=== PATIENT | female | born 2000 | race Caucasian/White ===

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

== ENCOUNTER 2021-03-16 23:14 | Emergency (ER) | payer MEDICAID ==
[2021-03-16] MEDS ORDERED: PROTONIX 40 MG IV IV ONE (23:32)
[2021-03-16] MEDS ORDERED: GI COCKTAIL 45 ML (Maalox/Lidocaine) PO ONE (23:35)
--- NOTE | 2021-03-16 23:40 | ERPHSYRPT ---
- History of Present Illness Time Seen by Provider: 03/16/21 23:20 Source: patient Exam Limitations: no limitations Physician History: Patient is a 20-year-old female presents to our ED with complaints of postprandial pain. Patient states that she had a meal today that caused her to experience some abdominal pain radiating up to her throat. Patient has been experiencing the symptoms for several months. She has been completely worked up including gallbladder and ultrasounds. Patient states that her work-ups were negative. Patient has a foul taste in her mouth. It appears patient is experiencing GERD. No associated nausea or vomiting. No diarrhea. No rash. No diaphoresis. No fever. No trauma. Symptoms are mild to moderate in intensity. Symptoms typically occur after a meal. Patient voices no other complaints or concerns at this time. Timing/Duration: today, other (Patient presents to our ED because the symptoms were somewhat worse today.) Severity: moderate Modifying Factors: Improves With: nothing Associated Symptoms: heartburn Allergies/Adverse Reactions: cashew nut Allergy (Intermediate, Verified 03/16/21 23:14) Hives Hx Tetanus, Diphtheria Vaccination/Date Given: No Hx Influenza Vaccination/Date Given: Yes Hx Pneumococcal Vaccination/Date Given: No Travel Risk - Vaccine Status Have you recieved a Covid-19 vaccination: No - Review of Systems Constitutional: No Symptoms, No Fever, No Chills Eyes: No Symptoms Ears, Nose, & Throat: No Symptoms Respiratory: No Symptoms, No Cough, No Dyspnea Cardiac: No Symptoms, No Chest Pain, No Edema, No Syncope Abdominal/Gastrointestinal: No Symptoms, No Abdominal Pain, No Nausea, No Vomiting, No Diarrhea Genitourinary Symptoms: No Symptoms, No Dysuria Musculoskeletal: No Symptoms, No Back Pain, No Neck Pain Skin: No Symptoms, No Rash Neurological: No Symptoms, No Dizziness, No Focal Weakness, No Sensory Changes Psychological: No Symptoms Endocrine: No Symptoms Hematologic/Lymphatic: No Symptoms Immunological/Allergic: No Symptoms All Other Systems: Reviewed and Negative - Past Medical History Pertinent Past Medical History: Yes Neurological History: No Pertinent History ENT History: No Pertinent History Cardiac History: No Pertinent History Respiratory History: No Pertinent History Endocrine Medical History: Hypothyroidism Musculoskeletal History: No Pertinent History GI Medical History: GERD History: No Pertinent History Psycho-Social History: Depression Female Reproductive Disorders: No Pertinent History - Past Surgical History Past Surgical History: No Neuro Surgical History: No Pertinent History Cardiac: No Pertinent History Respiratory: No Pertinent History Gastrointestinal: No Pertinent History Genitourinary: No Pertinent History Musculoskeletal: No Pertinent History Female Surgical History: No Pertinent History - Social History Smoking Status: Never smoker How long have you smoked: 2 yrs Exposure to second hand smoke: Yes Drug Use: none Patient Lives Alone: No - Nursing Vital Signs Nursing Vital Signs: Initial Vital Signs Temperature 97.4 F 03/16/21 23:15 Pulse Rate 68 03/16/21 23:15 Respiratory Rate 18 03/16/21 23:15 Blood Pressure 119/79 03/16/21 23:15 O2 Sat by Pulse Oximetry 100 03/16/21 23:15 Pain Scale Pain Intensity 5 - Physical Exam General Appearance: no apparent distress, alert Eye Exam: PERRL/EOMI, eyes nml inspection Ears, Nose, Throat Exam: normal ENT inspection, TMs normal, pharynx normal, moist mucous membranes Neck Exam: normal inspection, non-tender, supple, full range of motion Respiratory Exam: normal breath sounds, lungs clear, airway intact, No re spiratory distress Cardiovascular Exam: regular rate/rhythm, normal heart sounds, normal peripheral pulses Gastrointestinal/Abdomen Exam: soft, normal bowel sounds, other (Patient has no abdominal pain to palpation.), No tenderness, No mass Back Exam: normal inspection, normal range of motion, No CVA tenderness, No vertebral tenderness Extremity Exam: normal inspection, normal range of motion, pelvis stable Neurologic Exam: alert, oriented x 3, cooperative, normal mood/affect, nml cerebellar function, nml station & gait, sensation nml, No motor deficits Skin Exam: normal color, warm, dry, No rash Lymphatic Exam: No adenopathy SpO2 Interpretation: normal O2 Delivery: Room Air - Course Nursing assessment & vital signs reviewed: Yes EKG Interpreted by Me: RATE (64), Sinus Rhythm, NORMAL AXIS, NORMAL INTERVALS Ordered Tests: Active Orders 24 hr Category Date Time Status EKG-ER Only STAT Care 03/16/21 23:32 Active IV Insertion STAT Care 03/16/21 23:32 Active CBC W DIFF Stat Lab 03/16/21 23:32 Completed CMP Stat Lab 03/16/21 23:32 Completed D-DIMER QUANTITATIVE Stat Lab 03/16/21 23:32 Completed LIPASE Stat Lab 03/16/21 23:32 Completed TROPONIN Q3H Lab 03/16/21 23:32 Completed TROPONIN Q3H Lab 03/17/21 02:45 Ordered TROPONIN Q3H Lab 03/17/21 05:45 Ordered TROPONIN Q3H Lab 03/17/21 08:45 Ordered TROPONIN Q3H Lab 03/17/21 11:45 Ordered Medication Summary Discontinued Medications Generic Name Dose Route Start Last Admin Trade Name Nanci PRN Reason Stop Dose Admin Al Hydrox/Mg Hydrox/Simethicone Confirm 03/17/21 00:09 Mag Hydrox/Al Hydrox/Simeth 30 Ml Udcup Administered 03/17/21 00:10 Dose 30 ml .ROUTE .STK-MED ONE Lidocaine HCl Confirm 03/17/21 00:09 Lidocaine Hcl Viscous 1 Ml Administered 03/17/21 00:10 Dose 15 ml .ROUTE .STK-MED ONE Magnesium Hydroxide 45 ml 03/16/21 23:35 03/17/21 00:11 Mag Hydrx/Alum Hyd/Simeth/Lido 45 Ml Bottle PO 03/16/21 23:36 45 ml STAT ONE Administration Pantoprazole Sodium 40 mg 03/16/21 23:32 03/17/21 00:10 Pantoprazole 40 Mg Vial IV 03/16/21 23:33 40 mg STAT ONE Administration Pantoprazole Sodium Confirm 03/17/21 00:09 Pantoprazole 40 Mg Vial Administered 03/17/21 00:10 Dose 40 mg IV .STK-MED ONE Lab/Rad Data: Laboratory Result Diagrams 03/16/21 23:32 03/16/21 23:32 Laboratory Results 03/16/21 03/16/21 03/16/21 Range/Units 23:32 23:32 23:32 WBC 10.8 H (4.0-10.5) K/mm3 RBC 4.57 (4.1-5.4) M/mm3 Hgb 13.2 (12.0-16.0) gm/dl Hct 41.5 (35-47) % MCV 90.8 (78-100) fl MCH 28.9 (26-32) pg MCHC 31.8 L (32-36) g/dl RDW 13.9 (11.5-14.0) % Plt Count 286 (150-450) K/mm3 MPV 11.8 H (7.5-11.0) fl Gran % 59.4 (36.0-66.0) % Eos # (Auto) 0.21 (0-0.5) Absolute Lymphs (auto) 3.03 (1.0-4.6) Absolute Monos (auto) 1.14 (0.0-1.3) Lymphocytes % 28.0 (24.0-44.0) % Monocytes % 10.5 (0.0-12.0) % Eosinophils % 1.9 (0.00-5.0) % Basophils % 0.2 (0.0-0.4) % Absolute Granulocytes 6.43 (1.4-6.9) Basophils # 0.02 (0-0.4) D-Dimer 225 (215-500) ng/mL Sodium 141 (137-145) mmol/L Potassium 4.0 (3.5-5.1) mmol/L Chloride 108 H (98-107) mmol/L Carbon Dioxide 25 (22-30) mmol/L Anion Gap 12.5 (5-15) MEQ/L BUN 7 (7-17) mg/dL Creatinine 0.65 (0.52-1.04) mg/dL Estimated GFR > 60.0 ML/MIN Glucose 83 (74-106) mg/dL Calcium 9.2 (8.4-10.2) mg/dL Total Bilirubin 0.50 (0.2-1.3) mg/dL AST 22 (14-36) U/L ALT 19 (0-35) U/L Alkaline Phosphatase 40 (38-126) U/L Troponin I (0.000-0.034) ng/mL Serum Total Protein 7.2 (6.3-8.2) g/dL Albumin 4.4 (3.5-5.0) g/dL Lipase 78 (23-300) U/L 03/16/21 Range/Units 23:32 WBC (4.0-10.5) K/mm3 RBC (4.1-5.4) M/mm3 Hgb (12.0-16.0) gm/dl Hct (35-47) % MCV (78-100) fl MCH (26-32) pg MCHC (32-36) g/dl RDW (11.5-14.0) % Plt Count (150-450) K/mm3 MPV (7.5-11.0) fl Gran % (36.0-66.0) % Eos # (Auto) (0-0.5) Absolute Lymphs (auto) (1.0-4.6) Absolute Monos (auto) (0.0-1.3) Lymphocytes % (24.0-44.0) % Monocytes % (0.0-12.0) % Eosinophils % (0.00-5.0) % Basophils % (0.0-0.4) % Absolute Granulocytes (1.4-6.9) Basophils # (0-0.4) D-Dimer (215-500) ng/mL Sodium (137-145) mmol/L Potassium (3.5-5.1) mmol/L Chloride (98-107) mmol/L Carbon Dioxide (22-30) mmol/L Anion Gap (5-15) MEQ/L BUN (7-17) mg/dL Creatinine (0.52-1.04) mg/dL Estimated GFR ML/MIN Glucose (74-106) mg/dL Calcium (8.4-10.2) mg/dL Total Bilirubin (0.2-1.3) mg/dL AST (14-36) U/L ALT (0-35) U/L Alkaline Phosphatase (38-126) U/L Troponin I < 0.012 (0.000-0.034) ng/mL Serum Total Protein (6.3-8.2) g/dL Albumin (3.5-5.0) g/dL Lipase (23-300) U/L - Progress Progress: improved Progress Note: Patient reassessed. She is well. Symptoms resolved. Work-up essentially nonremarkable. Troponin negative. D-dimer negative. Patient received GI cocktail and Protonix which improved her symptomology. No indication for further work-up at this time. Will discharge home. Patient agrees to follow-up with primary care doctor within 48 hours for evaluation. She voices no other complaints or concerns at this time. Portions of this note were created with voice recognition technology. There may be grammatical, spelling, punctuation or sound alike errors 03/17/21 01:20 Counseled pt/family regarding: lab results, diagnosis, need for follow-up - Departure Departure Disposition: Home Clinical Impression: Acid reflux Condition: Stable Critical Care Time: No Referrals: TEMO GUERRERO [Primary Care Provider] - Follow up/PCP as directed Additional Instructions: Discharge/Care Plan SHASHI JORGENSEN was seen on 03/16/21 in the Emergency Room. The patient was counseled regarding Diagnosis,Lab results, Imaging studies, need for follow up and when to return to the Emergency Room. Prescriptions given: Discharge Note I have spoken with the patient and/or caregivers. I have explained the patient's condition, diagnosis and treatment plan based on the information available to me at this time. I have answered the patient's and/or caregiver's questions and addressed any concerns. The patient and/or caregivers have as good understanding of the patient's diagnosis, condition and treatment plan as can be expected at this point. The vital signs have been stable. The patient's condition is stable and appropriate for discharge from the emergency department. The patient will pursue further outpatient evaluation with the primary care physician or other designated or consulting physician as outlined in the discharge instructions. The patient and/or caregivers are agreeable to this plan of care and follow-up instructions have been explained in detail. The patient and/or caregivers have received these instruction. The patient/and or caregivers are aware that any significant change in condition or worsening of symptoms should prompt an immediate return to this or the closest emergency department or call 911. Prescriptions: Famotidine 20 mg [Pepcid 20 MG] 20 mg PO BID #28 tablet
[2021-03-16 23:58] LABS: Absolute Neutrophil Ct (ANC) 6.43 (1.4-6.9); BASOPHIL % 0.2 % (0.0-0.4); Basophil (Absolute #) 0.02 (0-0.4); Eosinophil % 1.9 % (0.00-5.0); Eosinophil (Absolute #) 0.21 (0-0.5); Hematocrit 41.5 % (35-47); Hemoglobin 13.2 gm/dl (12.0-16.0); Lymphocyte (Absolute #) 3.03 (1.0-4.6); Mean Cell Volume 90.8 fl (78-100); Mean Corpuscular Hemoglobin 28.9 pg (26-32); Mean Corpuscular Hgb Concent. 31.8 g/dl (32-36); Mean Platelet Volume 11.8 fl (7.5-11.0); Monocyte (Absolute #) 1.14 (0.0-1.3); Monocytes % 10.5 % (0.0-12.0); Neutrophil % 59.4 % (36.0-66.0); Platelet Count 286 K/mm3 (150-450); Red Blood Count 4.57 M/mm3 (4.1-5.4); Red Cell Distribution Width 13.9 % (11.5-14.0); White Blood Count 10.8 K/mm3 (4.0-10.5)
[2021-03-17] MEDS ORDERED: MAALOX ES 30 ML UNIT DOSE ONE (00:09)
[2021-03-17] MEDS ORDERED: XYLOCAINE HCl Viscous ONE (00:09)
[2021-03-17] MEDS ORDERED: PROTONIX 40 MG IV IV ONE (00:09)
[2021-03-17 00:10] LABS: ALBUMIN 4.4 g/dL (3.5-5.0); ALKALINE PHOSPHATASE 40 U/L (38-126); ANION GAP 12.5 MEQ/L (5-15); BLOOD UREA NITROGEN 7 mg/dL (7-17); CHLORIDE 108 mmol/L (98-107); Calcium 9.2 mg/dL (8.4-10.2); Carbon Dioxide 25 mmol/L (22-30); Creatinine 1 0.65 mg/dL (0.52-1.04); EST GLOMERULAR FILTRATION RATE > 60.0 ML/MIN; Glucose 83 mg/dL (74-106); LIPASE 78 U/L (23-300); SGOT/AST 22 U/L (14-36); SGPT/ALT 19 U/L (0-35); SODIUM 141 mmol/L (137-145); Total Protein 7.2 g/dL (6.3-8.2)
[2021-03-17 00:19] VITALS: O2SAT 99
[2021-03-17 01:09] VITALS: BP 116/45; PULSE 56
== END 2021-03-17 01:33 | disposition home or self-care (01) ==
LOC: ED 23:14
DX: K21.9 Gastro-esophageal reflux disease without esophagitis (principal)
CPT/HCPCS: 36000; 36415; 80053; 83690; 84484; 85025; 85379; 93005; 96374; 99284; A9270-GY

== ENCOUNTER 2021-06-09 05:59 | Day surgery (SDC) | payer MEDICAID ==
[2021-06-09 07:21] VITALS: BP 122/80; PULSE 62; O2SAT 99
[2021-06-09] MEDS ORDERED: Lactated Ringers 1,000 ML IV SCH (07:30)
== END 2021-06-09 07:35 | disposition home or self-care (01) ==
LOC: SDC 05:59
PROVIDERS: ATTEND Family Medicine
DX: Z53.9 Procedure and treatment not carried out, unspecified reason (principal)
CPT/HCPCS: 84703

== ENCOUNTER 2021-07-13 06:01 | Day surgery (SDC) | payer MEDICAID ==
[~2021-07-13 06:01] MED LIST: Lactated Ringers 1,000 ML IV SCH
[2021-07-13] MEDS ORDERED: Lactated Ringers 1,000 ML IV ONE (06:41)
[2021-07-13] MEDS ORDERED: Xylocaine-Mpf 2% 5 Ml Vial ONE (08:45)
[2021-07-13] MEDS ORDERED: Versed 2 MG/2 ML Injection ONE (08:45)
[2021-07-13] MEDS ORDERED: DIPRIVAN 200 MG/20 ML IV ONE (08:45)
[2021-07-13 08:53] VITALS: BP 138/83; PULSE 71; O2SAT 98
--- NOTE | 2021-07-13 12:03 | OP ---
SURGERY DATE/TIME: 07/13/2021 0748 PREOPERATIVE DIAGNOSIS: Epigastric pain, nausea and vomiting. POSTOPERATIVE DIAGNOSIS: Moderate gastritis. PROCEDURE: Esophagogastroduodenoscopy with cold forceps biopsy. SURGEON: Dr. Hicks. ANESTHESIA: Medications were given by the anesthesia department. BRIEF HISTORY: The patient is a 21-year-old white female who has been having problems with abdominal pain and epigastric area with vomiting over the past several months. She was on famotidine with no improvement. She also had her gallbladder evaluated and this was normal. The patient was felt to need to have endoscopic evaluation. She was appraised of the risks of the procedure including the risk of perforation, phlebitis, untoward reaction to medication, bleeding and missed lesions. The patient verbalized her understanding and desired to have the procedure performed. DESCRIPTION OF PROCEDURE: The patient was given the medications by the anesthesia department. She had continuous pulse oximetry, ECG monitoring, intermittent blood pressure monitoring and tidal CO2 monitoring during the examination. She was placed in the left lateral decubitus position. A bite block was placed. The flexible Olympus gastroscope was introduced in the oropharynx. A view of the larynx was obtained and was normal. The scope was easily introduced in the esophagus which was normal throughout its length. The stomach was entered where normal gastric rugal folds were seen and these distended nicely with insufflation of air. The scope was passed along the greater curvature of the stomach to the antrum which appeared to be moderately erythematous with mild erosions. No ulcerations however were present. Pylorus encountered. Duodenum inspected and found to be essentially normal. The scope is withdrawn towards the stomach again. A retroflex view was obtained of the lesser curvature, fundus and cardia regions of the stomach and these appeared to be essentially normal. The scope was then redirected towards the gastric antrum and biopsies were obtained using cold biopsy forceps to evaluate for the presence of Helicobacter pylori-type organisms and evaluate for gastritis. The scope was then removed from the patient who tolerated the procedure well and was [facility] good condition.
== END 2021-07-13 09:00 | disposition home or self-care (01) ==
LOC: SDC 06:01
PROVIDERS: ATTEND Family Medicine
DX: K29.70 Gastritis, unspecified, without bleeding (principal); R10.13 Epigastric pain; R11.2 Nausea with vomiting, unspecified
CPT/HCPCS: 84703; J2250; J2704

== ENCOUNTER 2021-08-29 11:35 | Emergency (ER) | payer MEDICAID ==
[2021-08-29 11:58] VITALS: O2SAT 100
--- NOTE | 2021-08-29 12:10 | ERPHSYRPT ---
- History of Present Illness Time Seen by Provider: 08/29/21 12:08 Source: patient Exam Limitations: no limitations Patient Subjective Stated Complaint: pt reports heavy menstrual bleeding for 11 days, states she has not had a period for one year, and 11 days ago she began with some spotting, the bleeding has increased since then and now she is passing moderate size clots and saturating a pad within 2 hours. pt states the bleeding is intermittent and she is also cramping. pt reports she has been evaluated in the past for PCOS and does not have it. pt is sexually active with a negative home test last month. Triage Nursing Assessment: pt is aox3, pupils perrl, afebrile, resps easy and non labored, radial pulses strong and equal, pt abd soft, tender to lower quads, pt skin pale warm dry. Physician History: pt reports heavy menstrual bleeding for 11 days, states she has not had a period for one year, and 11 days ago she began with some spotting, the bleeding has increased since then and now she is passing moderate size clots and saturating a pad within 2 hours. pt states the bleeding is intermittent and she is also cramping. pt reports she has been evaluated in the past for PCOS and does not have it. pt is sexually active with a negative home test last month. Timing/Duration: day(s) Activites at Onset: none Quality: cramping Onset Location: RLQ Pain Radiation: none Severity of Pain-Max: moderate Severity of Pain-Current: moderate Prior abdominal problems: none Sexual intercourse history: less than 2 months ago, pain with intercourse Modifying Factors: Improves With: nothing Associated Symptoms: abdominal pain Allergies/Adverse Reactions: cashew nut Allergy (Intermediate, Verified 08/29/21 11:57) Hives Hx Tetanus, Diphtheria Vaccination/Date Given: Yes Hx Influenza Vaccination/Date Given: No Hx Pneumococcal Vaccination/Date Given: No Travel Risk - International Travel Have you traveled outside of the country in past 3 weeks: No - Coronavirus Screening Are you exhibiting any of the following symptoms?: No Close contact with a COVID-19 positive Pt in past 14-21 Days: No - Vaccine Status Have you recieved a Covid-19 vaccination: Yes 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: [employer] - Vaccination Dates Date of 2cond Vaccination (if applicable): unk - Review of Systems Constitutional: No Fever, No Chills Eyes: No Symptoms Ears, Nose, & Throat: No Symptoms Respiratory: No Cough, No Dyspnea Cardiac: No Chest Pain, No Edema, No Syncope Abdominal/Gastrointestinal: Abdominal Pain, No Nausea, No Vomiting, No Diarrhea Genitourinary Symptoms: Menorrhagia, Vaginal Bleeding, No Dysuria, No , No Vaginal Discharge, No Vaginal Itching Musculoskeletal: No Back Pain, No Neck Pain Skin: No Rash Neurological: No Dizziness, No Focal Weakness, No Sensory Changes Psychological: No Symptoms Endocrine: No Symptoms All Other Systems: Reviewed and Negative - Past Medical History Pertinent Past Medical History: Yes Neurological History: No Pertinent History ENT History: No Pertinent History Cardiac History: No Pertinent History Respiratory History: No Pertinent History Endocrine Medical History: Hypothyroidism Musculoskeletal History: No Pertinent History GI Medical History: GERD History: No Pertinent History Psycho-Social History: Depression Female Reproductive Disorders: No Pertinent History - Past Surgical History Past Surgical History: No Neuro Surgical History: No Pertinent History Cardiac: No Pertinent History Respiratory: No Pertinent History Gastrointestinal: No Pertinent History Genitourinary: No Pertinent History Musculoskeletal: No Pertinent History Female Surgical History: No Pertinent History - Social History Smoking Status: Current every day smoker How long have you smoked: 2 yrs Exposure to second hand smoke: Yes Drug Use: marijuana Patient Lives Alone: No - Female History Hx Last Menstrual Period: 08/29/2021 Hx Now: No (sexually active) - Nursing Vital Signs Nursing Vital Signs: Initial Vital Signs Temperature 98.7 F 08/29/21 11:48 Pulse Rate 69 08/29/21 11:48 Respiratory Rate 20 08/29/21 11:48 Blood Pressure 103/75 08/29/21 11:48 O2 Sat by Pulse Oximetry 100 08/29/21 11:48 Pain Scale Pain Intensity 6 - Physical Exam General Appearance: no apparent distress, alert Eye Exam: PERRL/EOMI, eyes nml inspection Ears, Nose, Throat Exam: normal ENT inspection, TMs normal, pharynx normal, m oist mucous membranes Neck Exam: normal inspection, non-tender, supple, full range of motion Respiratory Exam: normal breath sounds, lungs clear, No respiratory distress Cardiovascular Exam: regular rate/rhythm, normal heart sounds, normal peripheral pulses Gastrointestinal/Abdomen Exam: soft, tenderness (right lower quadrant), No mass Back Exam: normal inspection, normal range of motion, No CVA tenderness, No vertebral tenderness Extremity Exam: normal inspection, normal range of motion, pelvis stable Neurologic Exam: alert, oriented x 3, cooperative, 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, normal mood/affect, sensation nml, No motor deficits Skin Exam: normal color, warm, dry Lymphatic Exam: No adenopathy SpO2: 100 - Course Nursing assessment & vital signs reviewed: Yes Ordered Tests: Active Orders 24 hr Category Date Time Status AMYLASE Stat Lab 08/29/21 12:15 Completed CBC W DIFF Stat Lab 08/29/21 12:15 Completed CMP Stat Lab 08/29/21 12:15 Completed HCG QUALITATIVE,SERUM Stat Lab 08/29/21 12:15 Completed HCG, Quantitative (Inhouse) Stat Lab 08/29/21 12:15 Completed LIPASE Stat Lab 08/29/21 12:15 Completed UA W/RFX CULTURE Stat Lab 08/29/21 12:01 Completed Lab/Rad Data: Laboratory Result Diagrams 08/29/21 12:15 08/29/21 12:15 Laboratory Results 08/29/21 08/29/21 08/29/21 Range/Units 12:15 12:15 12:15 WBC (4.0-10.5) x10^3/uL RBC (4.1-5.4) x10^6/uL Hgb (12.0-16.0) g/dL Hct (35-47) % MCV (78-100) fL MCH (26-32) pg MCHC (32-36) g/dL RDW (11.5-14.0) % Plt Count (150-450) x10^3/uL MPV (7.5-11.0) fL Gran % (36.0-66.0) % Immature Gran % (Auto) (0.00-0.4) % Nucleat RBC Rel Count (0.00-0.1) % Eos # (Auto) (0-0.5) x10^3/uL Immature Gran # (Auto) (0.00-0.03) x10^3u/L Absolute Lymphs (auto) (1.0-4.6) x10^3/uL Absolute Monos (auto) (0.0-1.3) x10^3/uL Absolute Nucleated RBC (0.00-0.01) x10^3u/L Lymphocytes % (24.0-44.0) % Monocytes % (0.0-12.0) % Eosinophils % (0.00-5.0) % Basophils % (0.0-0.4) % Absolute Granulocytes (1.4-6.9) x10^3/uL Basophils # (0-0.4) x10^3/uL Sodium 141 (137-145) mmol/L Potassium 4.0 (3.5-5.1) mmol/L Chloride 109 H (98-107) mmol/L Carbon Dioxide 22 (22-30) mmol/L Anion Gap 13.7 (5-15) MEQ/L BUN 6 L (7-17) mg/dL Creatinine 0.57 (0.52-1.04) mg/dL Estimated GFR > 60.0 ML/MIN Glucose 85 (74-106) mg/dL Calcium 9.3 (8.4-10.2) mg/dL Total Bilirubin 0.60 (0.2-1.3) mg/dL AST 19 (14-36) U/L ALT 16 (0-35) U/L Alkaline Phosphatase 40 (38-126) U/L Serum Total Protein 6.6 (6.3-8.2) g/dL Albumin 3.9 (3.5-5.0) g/dL Amylase 46 (30-110) U/L Lipase 38 (23-300) U/L Beta HCG, Quant 1155.4 mIU/ml Serum , Qual POSITIVE (Negative) Urinalys Dipstick Clnc Urine Color (YELLOW) Urine Appearance (CLEAR) Urine pH (5-6) Ur Specific [place] (1.005-1.025) POC Urine Protein Conf (Negative) Urine Ketones (NEGATIVE) Urine Nitrite (NEGATIVE) Urine Bilirubin (NEGATIVE) Urine Urobilinogen (0-1) mg/dL Urine Leukocytes (NEGATIVE) Urine WBC (Auto) (0-5) /HPF Urine RBC (Auto) (0-2) /HPF U Epithel Cells (Auto) (FEW) /HPF Urine Bacteria (Auto) (NEGATIVE) /HPF Urine RBC (0-5) Bello/ul Ur Culture Indicated? Urine Glucose (NEGATIVE) mg/dL 08/29/21 08/29/21 Range/Units 12:15 12:01 WBC 5.6 (4.0-10.5) x10^3/uL RBC 4.00 L (4.1-5.4) x10^6/uL Hgb 11.8 L (12.0-16.0) g/dL Hct 36.5 (35-47) % MCV 91.3 (78-100) fL MCH 29.5 (26-32) pg MCHC 32.3 (32-36) g/dL RDW 13.0 (11.5-14.0) % Plt Count 217 (150-450) x10^3/uL MPV 11.4 H (7.5-11.0) fL Gran % 62.6 (36.0-66.0) % Immature Gran % (Auto) 0.4 (0.00-0.4) % Nucleat RBC Rel Count 0.0 (0.00-0.1) % Eos # (Auto) 0.13 (0-0.5) x10^3/uL Immature Gran # (Auto) 0.02 (0.00-0.03) x10^3u/L Absolute Lymphs (auto) 1.42 (1.0-4.6) x10^3/uL Absolute Monos (auto) 0.50 (0.0-1.3) x10^3/uL Absolute Nucleated RBC 0.00 (0.00-0.01) x10^3u/L Lymphocytes % 25.4 (24.0-44.0) % Monocytes % 8.9 (0.0-12.0) % Eosinophils % 2.3 (0.00-5.0) % Basophils % 0.4 (0.0-0.4) % Absolute Granulocytes 3.50 (1.4-6.9) x10^3/uL Basophils # 0.02 (0-0.4) x10^3/uL Sodium (137-145) mmol/L Potassium (3.5-5.1) mmol/L Chloride (98-107) mmol/L Carbon Dioxide (22-30) mmol/L Anion Gap (5-15) MEQ/L BUN (7-17) mg/dL Creatinine (0.52-1.04) mg/dL Estimated GFR ML/MIN Glucose (74-106) mg/dL Calcium (8.4-10.2) mg/dL Total Bilirubin (0.2-1.3) mg/dL AST (14-36) U/L ALT (0-35) U/L Alkaline Phosphatase (38-126) U/L Serum Total Protein (6.3-8.2) g/dL Albumin (3.5-5.0) g/dL Amylase (30-110) U/L Lipase (23-300) U/L Beta HCG, Quant mIU/ml Serum , Qual (Negative) Urinalys Dipstick Clnc MAIN LAB Urine Color YELLOW (YELLOW) Urine Appearance CLEAR (CLEAR) Urine pH 7.5 (5-6) Ur Specific [place] 1.020 (1.005-1.025) POC Urine Protein Conf NEGATIVE (Negative) Urine Ketones NEGATIVE (NEGATIVE) Urine Nitrite NEGATIVE (NEGATIVE) Urine Bilirubin NEGATIVE (NEGATIVE) Urine Urobilinogen 0.2 (0-1) mg/dL Urine Leukocytes NEGATIVE (NEGATIVE) Urine WBC (Auto) NONE (0-5) /HPF Urine RBC (Auto) 0-2 (0-2) /HPF U Epithel Cells (Auto) NONE (FEW) /HPF Urine Bacteria (Auto) RARE (NEGATIVE) /HPF Urine RBC SMALL (0-5) Bello/ul Ur Culture Indicated? NO Urine Glucose NEGATIVE (NEGATIVE) mg/dL - Progress Progress: improved Air Movement: good Counseled pt/family regarding: lab results, diagnosis, need for follow-up (with Dr Hicks in 2-3 days) - Departure Departure Disposition: Home Clinical Impression: at early stage, Vaginal bleeding Condition: Stable Critical Care Time: No Referrals: TEMO HICKS [Primary Care Provider] - Follow up/PCP as directed Instructions: Symptoms, - The First Month Additional Instructions: Your blood tests reveals that you are and probably you are in very early into 2 to 4 weeks range. Please follow-up with your primary care physician in next 2 to 3 days and let them repeat the blood test for again to determine further status. Meanwhile drink lots of p.o. fluid. If you are smoking quit smoking. If your symptoms get worse come back to the emergency room or call your primary care physician for further help. JOSLYNSHASHI SKINNER was seen on 08/29/21 n the Emergency Room. At that time you were treated for an emergent condition, during your visit Laboratory, Radiology and/or other procedures may have been ordered. It is very important that you follow-up with your Primary Care Physician TEMO HICKS within the next 24-48 hours to review your Emergency Room visit and the final results of testing that was ordered. Some test results such as Urine Cultures, Blood Cultures, and other cultures if ordered will not be finalized for 24-48 hours. If you do not have a Primary Care Provider please call the medical records department at [phone] ext [phone] to obtain a copy of your results or you may sign into our patient portal to obtain these results by visiting us @ [email or web address] and completing the following steps: 1. Click on the Patient Portal link 2. Click the Patient Self Enrollment Link to complete the enrollment form and entering your 3. Once the enrollment form is completed you will receive an email with a temporary ID and password at the email address you provided. 4. Next choose a user name and password. Your user name must be at least 4 characters long and your password must be at least 4 characters long. 5. Choose a security question from the list and provide your answer to the que stion. If you already have signed into the Health Portal you may access your Health Ca re Information 01/11 by the following steps: 1. Login to our website @ [email or web address] 2. Enter your original user name and password. FAQS The [facility] Health Portal is an online tool that contains your Lab Results, Radiology Reports, Visit History, Discharge Instructions and Health Summary Lab and Radiology Results will not be available for 72 hours on the portal. The Portal is a secure site, passwords are encryted and URLs are re-written so they cannot be copied and pasted. You and authorized family members are the only ones who can access your Portal. Also there is a timeout feature that protects your information if you leave the Portal page open. If you have technical difficulty please use the Contact Us link on the page this will allow you to submit any questions you have regarding the Portal or you may contact the Medical Record Department at [phone] ext [phone].
[2021-08-29 12:20] LABS: Basophil (Absolute #) 0.02 x10^3/uL (0-0.4); Eosinophil % 2.3 % (0.00-5.0); Eosinophil (Absolute #) 0.13 x10^3/uL (0-0.5); Hematocrit 36.5 % (35-47); Hemoglobin 11.8 g/dL (12.0-16.0); Lymphocyte (Absolute #) 1.42 x10^3/uL (1.0-4.6); Lymphocytes % 25.4 % (24.0-44.0); Mean Cell Volume 91.3 fL (78-100); Mean Corpuscular Hemoglobin 29.5 pg (26-32); Mean Corpuscular Hgb Concent. 32.3 g/dL (32-36); Mean Platelet Volume 11.4 fL (7.5-11.0); Monocytes % 8.9 % (0.0-12.0); Neutrophil % 62.6 % (36.0-66.0); Platelet Count 217 x10^3/uL (150-450); White Blood Count 5.6 x10^3/uL (4.0-10.5)
[2021-08-29 12:35] LABS: Bacteria RARE /HPF (NEGATIVE); RBC 0-2 /HPF (0-2)
[2021-08-29 12:36] LABS: Appearance CLEAR (CLEAR); Bilirubin NEGATIVE (NEGATIVE); Glucose NEGATIVE (NEGATIVE); Ketones NEGATIVE (NEGATIVE); Nitrite NEGATIVE (NEGATIVE); Ph 7.5 (5-6); Protein,Urine Dip NEGATIVE (Negative); RBC SMALL Ery/ul (0-5); Urobilinogen 0.2 mg/dL (0-1)
[2021-08-29 12:37] LABS: Urine Cultured Indicated? NO
[2021-08-29 12:39] LABS: ALBUMIN 3.9 g/dL (3.5-5.0); ALKALINE PHOSPHATASE 40 U/L (38-126); AMYLASE 46 U/L (30-110); ANION GAP 13.7 MEQ/L (5-15); BLOOD UREA NITROGEN 6 mg/dL (7-17); CHLORIDE 109 mmol/L (98-107); Calcium 9.3 mg/dL (8.4-10.2); Carbon Dioxide 22 mmol/L (22-30); Creatinine 1 0.57 mg/dL (0.52-1.04); EST GLOMERULAR FILTRATION RATE > 60.0 ML/MIN; Glucose 85 mg/dL (74-106); LIPASE 38 U/L (23-300); SGOT/AST 19 U/L (14-36); SGPT/ALT 16 U/L (0-35); SODIUM 141 mmol/L (137-145); Total Protein 6.6 g/dL (6.3-8.2)
[2021-08-29 12:40] LABS: Dipstick done @ ? MAIN LAB
[2021-08-29 13:31] VITALS: BP 124/64; PULSE 57
== END 2021-08-29 13:48 | disposition home or self-care (01) ==
LOC: ED 11:35
DX: O20.9 Hemorrhage in early pregnancy, unspecified (principal); Z3A.01 Less than 8 weeks gestation of pregnancy; R10.31 Right lower quadrant pain; Z72.0 Tobacco use
CPT/HCPCS: 36415; 80053; 81015; 81025; 82150; 83690; 84702; 85025; 99283

== ENCOUNTER 2021-09-17 13:03 | Emergency (ER) | payer MEDICAID ==
[2021-09-17] MEDS ORDERED: Sodium Chloride 0.9% 1000 ML 1,000 ML IV STA (13:44)
[2021-09-17] MEDS ORDERED: Zofran 4 MG/2 ML VIAL IV ONE (13:45)
[2021-09-17] MEDS ORDERED: MORPHINE SULFATE 4 MG INJ IV ONE (13:45)
--- NOTE | 2021-09-17 14:00 | ERPHSYRPT ---
- History of Present Illness Time Seen by Provider: 09/17/21 13:12 Source: patient Exam Limitations: no limitations Patient Subjective Stated Complaint: C/O small amount of active vaginal bleeding that started yesterday. States, "it's like a bloody, thick, discharge." Denies any vaginal itching, or pain. Denies any recent sexual activity. States she does have some left lower abdomen pain that radiated into her left lower back. States she was in this ED on 08/29/21 and found out at that time that she was [address] George is now her OB and her next appointment with him is on 09/21/21. Triage Nursing Assessment: Patient ambulated back to ED without difficulties. She is alert and oriented. No SOB noted. Flat affect. Hypoactive bowel sounds. Left abdominal tenderness. No blood in undergarments and patient is not currently wearing a pad in her underwear. Physician History: 21 years old with recent miscarriage presented in the ER with chief complaint of left lower quadrant abdominal pain and vaginal bleeding starting this morning. Patient reports is more of light dark brown bleeding with sharp to crampy pain on the left lower quadrant without any significant aggravating or relieving factors. Patient reports her bleeding and pain resolved when her beta-hCG was going down almost 15 days ago but restarted again today. Timing/Duration: today, intermittent, sudden Activites at Onset: rest Quality: cramping Onset Location: LLQ Pain Radiation: none Severity of Pain-Max: moderate Severity of Pain-Current: moderate Prior abdominal problems: none Sexual intercourse history: not active Modifying Factors: Improves With: nothing Associated Symptoms: abdominal pain, vaginal discharge Allergies/Adverse Reactions: cashew nut Allergy (Intermediate, Verified 09/17/21 13:21) Hives Home Medications: No Reportable Medications [No Reported Medications] 09/17/21 [History] Hx Tetanus, Diphtheria Vaccination/Date Given: Yes Hx Influenza Vaccination/Date Given: No Hx Pneumococcal Vaccination/Date Given: No Travel Risk - International Travel Have you traveled outside of the country in past 3 weeks: No - Coronavirus Screening Are you exhibiting any of the following symptoms?: No Close contact with a COVID-19 positive Pt in past 14-21 Days: No - Vaccine Status Have you recieved a Covid-19 vaccination: Yes 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[employer] - Vaccination Dates Date of 2cond Vaccination (if applicable): 2020 - Review of Systems Constitutional: No Symptoms Eyes: No Symptoms Respiratory: No Symptoms Cardiac: No Symptoms Abdominal/Gastrointestinal: Abdominal Pain Genitourinary Symptoms: Vaginal Bleeding Musculoskeletal: No Symptoms Skin: No Symptoms Neurological: No Symptoms Psychological: No Symptoms Endocrine: No Symptoms Hematologic/Lymphatic: No Symptoms - Past Medical History Pertinent Past Medical History: Yes Neurological History: No Pertinent History ENT History: No Pertinent History Cardiac History: No Pertinent History Respiratory History: No Pertinent History Endocrine Medical History: Hypothyroidism Musculoskeletal History: No Pertinent History GI Medical History: GERD History: No Pertinent History Psycho-Social History: Depression Female Reproductive Disorders: No Pertinent History - Past Surgical History Past Surgical History: No Neuro Surgical History: No Pertinent History Cardiac: No Pertinent History Respiratory: No Pertinent History Gastrointestinal: No Pertinent History Genitourinary: No Pertinent History Musculoskeletal: No Pertinent History Female Surgical History: No Pertinent History - Social History Smoking Status: Current every day smoker How long have you smoked: 2 yrs Exposure to second hand smoke: Yes Drug Use: marijuana Patient Lives Alone: No - Female History Hx Last Menstrual Period: Doesn't know due date or last period date Hx Now: Yes Gestational Age: 7-8 weeks - Nursing Vital Signs Nursing Vital Signs: Initial Vital Signs Temperature 98.3 F 09/17/21 13:22 Pulse Rate 77 09/17/21 13:22 Respiratory Rate 17 09/17/21 13:22 Blood Pressure 121/56 09/17/21 13:22 O2 Sat by Pulse Oximetry 99 09/17/21 13:22 Pain Scale Pain Intensity 4 - Physical Exam General Appearance: no apparent distress, alert Eye Exam: PERRL/EOMI Ears, Nose, Throat Exam: normal ENT inspection Neck Exam: normal inspection Respiratory Exam: normal breath sounds, lungs clear Cardiovascular Exam: regular rate/rhythm, normal heart sounds Gastrointestinal/Abdomen Exam: soft, normal bowel sounds, tenderness (Left lower quadrant) Back Exam: normal inspection, normal range of motion Extremity Exam: normal inspection, normal range of motion Neurologic Exam: alert, oriented x 3, cooperative Skin Exam: normal color SpO2 Interpretation: normal SpO2: 99 O2 Delivery: Room Air Ordered Tests: Active Orders 24 hr Category Date Time Status IV Insertion STAT Care 09/17/21 13:44 Active NPO (ED) STAT Care 09/17/21 13:44 Active OB <14 WKS 1ST GESTATION [US] Stat Exams 09/17/21 15:32 Completed CBC W DIFF Stat Lab 09/17/21 14:30 Completed CMP Stat Lab 09/17/21 14:30 Completed CULTURE,URINE Stat Lab 09/17/21 13:50 Received HCG, Quantitative (Inhouse) Stat Lab 09/17/21 14:30 Completed UA W/RFX CULTURE Stat Lab 09/17/21 13:50 Completed Medication Summary Discontinued Medications Generic Name Dose Route Start Last Admin Trade Name Nanci PRN Reason Stop Dose Admin Sodium Chloride 1,000 mls @ 999 mls/hr 09/17/21 13:44 09/17/21 15:21 Sodium Chloride 0.9% 1000 Ml IV 09/17/21 14:44 Infused .Q1H1M STA Infusion Sodium Chloride Confirm 09/17/21 14:15 Sodium Chloride 0.9% 1000 Ml Administered 09/17/21 14:16 Dose 1,000 mls @ ud .ROUTE .STK-MED ONE Morphine Sulfate 4 mg 09/17/21 13:45 09/17/21 14:18 Morphine Sulfate 4 Mg/Ml Injection IV 09/17/21 13:46 4 mg STAT ONE Administration Morphine Sulfate Confirm 09/17/21 14:15 Morphine Sulfate 4 Mg/Ml Injection Administered 09/17/21 14:16 Dose 4 mg .ROUTE .STK-MED ONE Ondansetron HCl 4 mg 09/17/21 13:45 09/17/21 14:17 Ondansetron Hcl 4 Mg/2 Ml Vial IV 09/17/21 13:46 4 mg STAT ONE Administration Ondansetron HCl Confirm 09/17/21 14:15 Ondansetron Hcl 4 Mg/2 Ml Vial Administered 09/17/21 14:16 Dose 4 mg .ROUTE .STK-MED ONE Lab/Rad Data: Laboratory Result Diagrams 09/17/21 14:30 09/17/21 14:30 Laboratory Results 09/17/21 09/17/21 09/17/21 Range/Units 14:30 14:30 13:50 WBC 5.8 (4.0-10.5) x10^3/uL RBC 3.89 L (4.1-5.4) x10^6/uL Hgb 11.6 L (12.0-16.0) g/dL Hct 35.0 (35-47) % MCV 90.0 (78-100) fL MCH 29.8 (26-32) pg MCHC 33.1 (32-36) g/dL RDW 12.7 (11.5-14.0) % Plt Count 220 (150-450) x10^3/uL MPV 10.9 (7.5-11.0) fL Gran % 60.9 (36.0-66.0) % Immature Gran % (Auto) 0.2 (0.00-0.4) % Nucleat RBC Rel Count 0.0 (0.00-0.1) % Eos # (Auto) 0.16 (0-0.5) x10^3/uL Immature Gran # (Auto) 0.01 (0.00-0.03) x10^3u/L Absolute Lymphs (auto) 1.62 (1.0-4.6) x10^3/uL Absolute Monos (auto) 0.46 (0.0-1.3) x10^3/uL Absolute Nucleated RBC 0.00 (0.00-0.01) x10^3u/L Lymphocytes % 27.9 (24.0-44.0) % Monocytes % 7.9 (0.0-12.0) % Eosinophils % 2.8 (0.00-5.0) % Basophils % 0.3 (0.0-0.4) % Absolute Granulocytes 3.54 (1.4-6.9) x10^3/uL Basophils # 0.02 (0-0.4) x10^3/uL Sodium 141 (137-145) mmol/L Potassium 3.9 (3.5-5.1) mmol/L Chloride 110 H (98-107) mmol/L Carbon Dioxide 22 (22-30) mmol/L Anion Gap 13.8 (5-15) MEQ/L BUN 8 (7-17) mg/dL Creatinine 0.62 (0.52-1.04) mg/dL Estimated GFR > 60.0 ML/MIN Glucose 89 (74-106) mg/dL Calcium 8.8 (8.4-10.2) mg/dL Total Bilirubin 0.40 (0.2-1.3) mg/dL AST 22 (14-36) U/L ALT 17 (0-35) U/L Alkaline Phosphatase 36 L (38-126) U/L Serum Total Protein 6.7 (6.3-8.2) g/dL Albumin 3.8 (3.5-5.0) g/dL Beta HCG, Quant 176.82 mIU/ml Urinalys Dipstick Clnc MAIN LAB Urine Color YELLOW (YELLOW) Urine Appearance CLEAR (CLEAR) Urine pH 6.5 (5-6) Ur Specific [place] 1.025 (1.005-1.025) POC Urine Protein Conf 30 (Negative) Urine Ketones NEGATIVE (NEGATIVE) Urine Nitrite NEGATIVE (NEGATIVE) Urine Bilirubin NEGATIVE (NEGATIVE) Urine Urobilinogen 0.2 (0-1) mg/dL Urine Leukocytes NEGATIVE (NEGATIVE) Urine WBC (Auto) 26-50 (0-5) /HPF Urine RBC (Auto) >101 (0-2) /HPF U Epithel Cells (Auto) FEW (FEW) /HPF Urine Bacteria (Auto) MODERATE (NEGATIVE) /HPF Urine RBC LARGE (0-5) Bello/ul Urine Mucus (Auto) SLIGHT (NEGATIVE) /HPF Ur Culture Indicated? YES Urine Glucose NEGATIVE (NEGATIVE) mg/dL - Progress Progress: improved Air Movement: good Progress Note: 09/17/21 17:20 21-year-old is evaluated for vaginal bleeding and lower abdominal pain. Given symptomatic treatment for pain, beta-hCG is 175. Obtain ultrasound which showed new intra uterine indeterminate cystic mass in the lower uterine segment without Miguelina pole/heart tones. I believe patient has incomplete/missed . Discussed with patient about ultrasound results and what to expect and also signs symptoms of worsening needing return to ER which she seems understanding. Stable for discharge. Blood Culture(s) Obtained: No Antibiotics given: No Counseled pt/family regarding: lab results, diagnosis, need for follow-up, rad results - Departure Departure Disposition: Home Clinical Impression: Incomplete Condition: Stable Critical Care Time: No Referrals: TEMO GUERRERO [Primary Care Provider] - Follow up/PCP as directed DAVID GEORGE DO [ACTIVE STAFF] - Follow up/PCP as directed (Call for appointment for reevaluation.) Instructions: Miscarriage (DC) Additional Instructions: Take Tylenol/ibuprofen as needed. Follow-up with primary GOGGL[employer] ASSEMBLER for reevaluation. Return to ER for intractable pain, bleeding, feeling dizzy lightheaded etc.
[2021-09-17 14:08] VITALS: PULSE 60
[2021-09-17] MEDS ORDERED: Zofran 4 MG/2 ML VIAL ONE (14:15)
[2021-09-17] MEDS ORDERED: Sodium Chloride 0.9% 1000 ML 1,000 ML ONE (14:15)
[2021-09-17] MEDS ORDERED: MORPHINE SULFATE 4 MG INJ ONE (14:15)
[2021-09-17 14:36] LABS: Absolute Neutrophil Ct (ANC) 3.54 x10^3/uL (1.4-6.9); Basophil (Absolute #) 0.02 x10^3/uL (0-0.4); Eosinophil % 2.8 % (0.00-5.0); Eosinophil (Absolute #) 0.16 x10^3/uL (0-0.5); Hemoglobin 11.6 g/dL (12.0-16.0); Lymphocyte (Absolute #) 1.62 x10^3/uL (1.0-4.6); Lymphocytes % 27.9 % (24.0-44.0); Mean Corpuscular Hemoglobin 29.8 pg (26-32); Mean Corpuscular Hgb Concent. 33.1 g/dL (32-36); Mean Platelet Volume 10.9 fL (7.5-11.0); Monocyte (Absolute #) 0.46 x10^3/uL (0.0-1.3); Monocytes % 7.9 % (0.0-12.0); Neutrophil % 60.9 % (36.0-66.0); Platelet Count 220 x10^3/uL (150-450); Red Blood Count 3.89 x10^6/uL (4.1-5.4); Red Cell Distribution Width 12.7 % (11.5-14.0); White Blood Count 5.8 x10^3/uL (4.0-10.5)
[2021-09-17 14:50] LABS: Bacteria MODERATE /HPF (NEGATIVE); Epithelial Cells FEW /HPF (FEW); Mucus SLIGHT /HPF (NEGATIVE); WBC 26-50 /HPF (0-5)
[2021-09-17 14:56] LABS: Appearance CLEAR (CLEAR); Bilirubin NEGATIVE (NEGATIVE); Glucose NEGATIVE (NEGATIVE); Ketones NEGATIVE (NEGATIVE); Nitrite NEGATIVE (NEGATIVE); Ph 6.5 (5-6); Protein,Urine Dip 30 (Negative); RBC >101 /HPF (0-2); RBC LARGE Ery/ul (0-5); Specific Gravity 1.025 (1.005-1.025); Urobilinogen 0.2 mg/dL (0-1)
[2021-09-17 14:57] LABS: Urine Cultured Indicated? YES
[2021-09-17 14:58] LABS: Dipstick done @ ? MAIN LAB
[2021-09-17 15:08] LABS: ALBUMIN 3.8 g/dL (3.5-5.0); ALKALINE PHOSPHATASE 36 U/L (38-126); ANION GAP 13.8 MEQ/L (5-15); BLOOD UREA NITROGEN 8 mg/dL (7-17); CHLORIDE 110 mmol/L (98-107); Calcium 8.8 mg/dL (8.4-10.2); Carbon Dioxide 22 mmol/L (22-30); Creatinine 1 0.62 mg/dL (0.52-1.04); EST GLOMERULAR FILTRATION RATE > 60.0 ML/MIN; Glucose 89 mg/dL (74-106); HCG, Quantitative (Inhouse) 176.82 mIU/ml; Potassium 3.9 mmol/L (3.5-5.1); SGOT/AST 22 U/L (14-36); SGPT/ALT 17 U/L (0-35); SODIUM 141 mmol/L (137-145); Total Protein 6.7 g/dL (6.3-8.2)
[2021-09-17 15:38] VITALS: BP 113/59
--- NOTE | 2021-09-17 16:44 | XRAY ---
Indication: Left lower quadrant pain. Active bleeding. Two-dimensional transabdominal early OB ultrasound performed. Comparison: June 17, 2021 Uterus again anteverted measuring 6.0 x 3.3 x 3.8 cm. Lower uterine segment demonstrates new indeterminate cystic mass measuring at least 1.1 x 1.8 x 2.0 cm. No pole, yolk sac, or heart tones. Left and right ovaries are sonographically unremarkable. No suspicious adnexal mass or free fluid. Impression: New intrauterine indeterminate cystic mass in the lower uterine segment without pole/heart tones. Correlate with serial beta hCG and follow-up sonogram regarding viability.
[2021-09-17 17:32] VITALS: O2SAT 100
== END 2021-09-17 17:32 | disposition home or self-care (01) ==
LOC: ED 13:03
DX: O03.4 Incomplete spontaneous abortion without complication (principal); R10.32 Left lower quadrant pain; Z72.0 Tobacco use
CPT/HCPCS: 36000; 36415; 76801; 80053; 81015; 84702; 85025; 87086; 96374; 96375; 99284; J2270; J2405

== ENCOUNTER 2021-10-20 07:28 | Day surgery (SDC) | payer MEDICAID ==
[2021-10-20] MEDS ORDERED: Lactated Ringers 1,000 ML IV SCH ×2 (08:00→08:30)
[2021-10-20] MEDS ORDERED: CEFAZOLIN 2 GM-D5W BAG** 2 GM/50 ML ML IV SCH (08:00)
[2021-10-20] MEDS ORDERED: Lactated Ringers 1,000 ML IV ONE (08:10)
[2021-10-20] MEDS ORDERED: CEFAZOLIN 2 GM-D5W BAG** 2 GM/50 ML ML IV ONE (08:10)
[2021-10-20] MEDS ORDERED: DIPRIVAN 200 MG/20 ML IV ONE (09:22)
[2021-10-20] MEDS ORDERED: SUBLIMAZE 100 MCG/2 ML ONE (09:22)
[2021-10-20] MEDS ORDERED: Xylocaine-Mpf 2% 5 Ml Vial ONE (09:22)
[2021-10-20] MEDS ORDERED: Zofran 4 MG/2 ML VIAL ONE (09:22)
[2021-10-20] MEDS ORDERED: Decadron 4 MG INJ ONE (09:22)
[2021-10-20] MEDS ORDERED: Versed 2 MG/2 ML Injection ONE (09:33)
[2021-10-20] MEDS ORDERED: ARZOL Silver Nitrate Applicator TP ONE (09:49)
[2021-10-20 11:29] VITALS: O2SAT 99
[2021-10-20 11:34] VITALS: BP 136/88; PULSE 59
--- NOTE | 2021-10-21 07:46 | OP ---
SURGERY DATE/TIME: 10/20/2021 0929 PREOPERATIVE DIAGNOSIS: Retained products of conception. POSTOPERATIVE DIAGNOSIS: Retained products of conception. PROCEDURE: Suction D&C. SURGEON: Serg George D.O. PROP WORKER: Vy Ribeiro surgical nurse practitioner. ANESTHESIA: General. ESTIMATED BLOOD LOSS: Minimal. COMPLICATIONS: None. INDICATIONS: The risks, benefits, indications and alternatives of the procedure were reviewed with the patient prior to the procedure. The patient understood the risk of infection, bleeding, bowel injury, bladder injury, ureteral injury, uterine perforation and pelvic infection associated with the surgery and desires to have this surgery as a possible means to alleviate her current medical condition. DESCRIPTION OF PROCEDURE AND FINDINGS: At this point the patient is taken to the operating room, given general sedation, placed in dorsal lithotomy position, prepped and draped in the usual sterile fashion. A weighted speculum is then placed in the patient's vagina and the anterior lip of the cervix is grasped with a single tooth tenaculum. Endocervical dilators were advanced through the endocervical canal as a means to dilate the cervix and a #7 suction Vacurette was then placed in through the endocervical canal towards the fundal region where it was retracted approximately 1 cm where the machine was turned on for suctioning and complete suction was taken place retrieving the remaining products of conception. From this point after complete suctioning, the instrument was removed and the curette was placed into fundus of the uterus where curettage was performed in all quadrants of the uterus retrieving the remaining tissue. From this point hemostasis was obtained. From this point all instruments were removed from the patient's vaginal region. The patient was then taken out of the dorsal lithotomy position and was then taken out of anesthesia and was taken to the recovery room in stable condition. All instruments and laps were accounted for x2.
== END 2021-10-20 11:30 | disposition home or self-care (01) ==
LOC: SDC 07:28
PROVIDERS: ATTEND Obstetrics & Gynecology
DX: O02.1 Missed abortion (principal)
CPT/HCPCS: 59812; J0690; J1100; J2250; J2405; J2704; J3010; A9270-GY

== ENCOUNTER 2022-02-10 10:06 | Emergency (ER) | payer MEDICAID ==
--- NOTE | 2022-02-10 10:15 | ERPHSYRPT ---
- History of Present Illness Time Seen by Provider: 02/10/22 10:15 Historian: patient Exam Limitations: no limitations Physician History: This is a 21-year-old white female who is a patient of Dr. Hicks presents with left lower quad abdominal pain and decreased appetite. She was seen in the [facility] clinic yesterday and was told that she was "malnourished". There is no historical, physical or laboratory evidence of that but that is what the patient states that she was told. Patient states that the left lower quad abdominal pain is worse. She had an episode of vomiting and diarrhea without fever yesterday but none today. I reviewed the lab results that were obtained on 02/09/2022. There is no evidence of significant abnormalities in these labs. Timing/Duration: yesterday Activities at Onset: none Quality: aching Abdominal Pain Onset Location: LLQ Pain Radiation: no radiation Severity of Pain-Max: mild (To moderate) Severity of Pain-Current: mild (To moderate) Associated Symptoms: nausea (Yesterday yesterday), vomiting Previous symptoms: same symptoms as today, recently seen, recently treated Allergies/Adverse Reactions: cashew nut Allergy (Intermediate, Verified 02/10/22 10:21) Hives Home Medications: Ondansetron ODT 4 MG [Zofran Odt 4 mg] 4 mg PO Q6H PRN PRN 02/10/22 [History] Hx Tetanus, Diphtheria Vaccination/Date Given: Yes Hx Influenza Vaccination/Date Given: No Hx Pneumococcal Vaccination/Date Given: No Travel Risk - International Travel Have you traveled outside of the country in past 3 weeks: No - Coronavirus Screening Are you exhibiting any of the following symptoms?: No Close contact with a COVID-19 positive Pt in past 14-21 Days: No - Vaccine Status Have you recieved a Covid-19 vaccination: Yes 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[employer] - Vaccination Dates Date of 2cond Vaccination (if applicable): 2020 - Review of Systems Constitutional: No Symptoms Eyes: No Symptoms Ears, Nose, & Throat: No Symptoms Respiratory: No Symptoms Cardiac: No Symptoms Abdominal/Gastrointestinal: Abdominal Pain (Left lower quadrant), Nausea (Yesterday), Vomiting (Yesterday) Genitourinary Symptoms: No Symptoms Musculoskeletal: No Symptoms Skin: No Symptoms Neurological: No Symptoms Psychological: No Symptoms Endocrine: No Symptoms Hematologic/Lymphatic: No Symptoms Immunological/Allergic: No Symptoms All Other Systems: Reviewed and Negative - Past Medical History Pertinent Past Medical History: Yes Neurological History: No Pertinent History ENT History: No Pertinent History Cardiac History: No Pertinent History Respiratory History: No Pertinent History Endocrine Medical History: Hypothyroidism Musculoskeletal History: No Pertinent History GI Medical History: GERD History: No Pertinent History Psycho-Social History: Anxiety, Depression Female Reproductive Disorders: No Pertinent History - Past Surgical History Past Surgical History: Yes Neuro Surgical History: No Pertinent History Cardiac: No Pertinent History Respiratory: No Pertinent History Gastrointestinal: No Pertinent History Genitourinary: No Pertinent History Musculoskeletal: No Pertinent History Female Surgical History: No Pertinent History Other Surgical History: EGD - Social History Smoking Status: Current every day smoker How long have you smoked: 2 yrs Exposure to second hand smoke: Yes Drug Use: none, marijuana Patient Lives Alone: No - Nursing Vital Signs Nursing Vital Signs: Initial Vital Signs Temperature 97.5 F 02/10/22 10:19 Pulse Rate 56 L 02/10/22 10:19 Respiratory Rate 18 02/10/22 10:19 Blood Pressure 106/52 02/10/22 10:19 O2 Sat by Pulse Oximetry 98 02/10/22 10:19 Pain Scale Pain Intensity 6 - Physical Exam General Appearance: no apparent distress, alert, anxiety Eye Exam: PERRL/EOMI, eyes nml inspection Ears, Nose, Throat Exam: normal ENT inspection, moist mucous membranes Neck Exam: normal inspection, non-tender, supple, full range of motion Respiratory Exam: normal breath sounds, lungs clear, airway intact, No chest t enderness, No respiratory distress Cardiovascular Exam: regular rate/rhythm, normal heart sounds, normal peripheral pulses Gastrointestinal/Abdomen Exam: soft, normal bowel sounds, tenderness (Localized left lower quadrant to palpation), guarding (Left lower quadrant to palpation), No rebound Pelvic Exam: not done Rectal Exam: not done Back Exam: normal inspection, normal range of motion, No CVA tenderness, No vertebral tenderness Extremity Exam: normal inspection, normal range of motion, pelvis stable Neurologic Exam: alert, oriented x 3, cooperative, 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, normal mood/affect, nml cerebellar function, nml station & gait, sensation nml Skin Exam: normal color, warm, dry Lymphatic Exam: No adenopathy SpO2 Interpretation: normal O2 Delivery: Room Air - Course Nursing assessment & vital signs reviewed: Yes Ordered Tests: Active Orders 24 hr Category Date Time Status IV Insertion STAT Care 02/10/22 10:34 Active ABDOMEN AND PELVIS W/0 CONTRAS [CT] Stat Exams 02/10/22 10:35 Taken AMYLASE Stat Lab 02/10/22 10:52 Completed CBC W DIFF Stat Lab 02/10/22 10:52 Completed CMP Stat Lab 02/10/22 10:52 Completed HCG,QUALITATIVE URINE Stat Lab 02/10/22 10:39 Completed LIPASE Stat Lab 02/10/22 10:52 Completed UA W/RFX CULTURE Stat Lab 02/10/22 10:52 Completed Medication Summary Generic Name Dose Route Start Last Admin Trade Name Freq PRN Reason Stop Dose Admin Sodium Chloride 500 mls @ 500 mls/hr 02/10/22 11:04 Sodium Chloride 0.9% 500 Ml IV 02/10/22 12:03 .Q1H ONE Discontinued Medications Generic Name Dose Route Start Last Admin Trade Name Freq PRN Reason Stop Dose Admin Sodium Chloride Confirm 02/10/22 11:11 Sodium Chloride 0.9% 500 Ml Administered 02/10/22 11:12 Dose 500 mls @ ud IV .STK-MED ONE Lab/Rad Data: Laboratory Result Diagrams 02/10/22 10:52 02/10/22 10:52 Laboratory Results 02/10/22 02/10/22 02/10/22 Range/Units 10:52 10:52 10:52 WBC 5.9 (4.0-10.5) x10^3/uL RBC 4.18 (4.1-5.4) x10^6/uL Hgb 12.0 (12.0-16.0) g/dL Hct 37.5 (35-47) % MCV 89.7 (78-100) fL MCH 28.7 (26-32) pg MCHC 32.0 (32-36) g/dL RDW 12.9 (11.5-14.0) % Plt Count 217 (150-450) x10^3/uL MPV 11.5 H (7.5-11.0) fL Gran % 65.2 (36.0-66.0) % Immature Gran % (Auto) 0.2 (0.00-0.4) % Nucleat RBC Rel Count 0.0 (0.00-0.1) % Eos # (Auto) 0.07 (0-0.5) x10^3/uL Immature Gran # (Auto) 0.01 (0.00-0.03) x10^3u/L Absolute Lymphs (auto) 1.52 (1.0-4.6) x10^3/uL Absolute Monos (auto) 0.43 (0.0-1.3) x10^3/uL Absolute Nucleated RBC 0.00 (0.00-0.01) x10^3u/L Lymphocytes % 25.6 (24.0-44.0) % Monocytes % 7.3 (0.0-12.0) % Eosinophils % 1.2 (0.00-5.0) % Basophils % 0.5 (0.0-0.4) % Absolute Granulocytes 3.87 (1.4-6.9) x10^3/uL Basophils # 0.03 (0-0.4) x10^3/uL Sodium 139 (137-145) mmol/L Potassium 4.4 (3.5-5.1) mmol/L Chloride 106 (98-107) mmol/L Carbon Dioxide 27 (22-30) mmol/L Anion Gap 10.3 (5-15) MEQ/L BUN 10 (7-17) mg/dL Creatinine 0.79 (0.52-1.04) mg/dL Estimated GFR > 60.0 ML/MIN Glucose 92 (74-106) mg/dL Calcium 8.8 (8.4-10.2) mg/dL Total Bilirubin 0.40 (0.2-1.3) mg/dL AST 15 (14-36) U/L ALT 14 (0-35) U/L Alkaline Phosphatase 34 L (38-126) U/L Serum Total Protein 6.8 (6.3-8.2) g/dL Albumin 4.1 (3.5-5.0) g/dL Amylase 61 (30-110) U/L Lipase 45 (23-300) U/L Urinalys Dipstick Clnc MAIN LAB Urine Color DARK YELLOW (YELLOW) Urine Appearance CLEAR (CLEAR) Urine pH 6.0 (5-6) Ur Specific [place] >=1.030 A (1.005-1.025) POC Urine Protein Conf NEGATIVE (Negative) Urine Ketones SMALL-15 A (NEGATIVE) Urine Nitrite NEGATIVE (NEGATIVE) Urine Bilirubin NEGATIVE (NEGATIVE) Urine Urobilinogen 0.2 (0-1) mg/dL Urine Leukocytes NEGATIVE (NEGATIVE) Urine WBC (Auto) 3-5 A (0-5) /HPF Urine RBC (Auto) NONE (0-2) /HPF U Epithel Cells (Auto) RARE (FEW) /HPF Urine Bacteria (Auto) NONE (NEGATIVE) /HPF Urine RBC NEGATIVE (0-5) Bello/ul Urine Mucus (Auto) SLIGHT A (NEGATIVE) /HPF Ur Culture Indicated? NO Urine Glucose NEGATIVE (NEGATIVE) mg/dL Urine HCG, Qual (Negative) 02/10/22 Range/Units 10:39 WBC (4.0-10.5) x10^3/uL RBC (4.1-5.4) x10^6/uL Hgb (12.0-16.0) g/dL Hct (35-47) % MCV (78-100) fL MCH (26-32) pg MCHC (32-36) g/dL RDW (11.5-14.0) % Plt Count (150-450) x10^3/uL MPV (7.5-11.0) fL Gran % (36.0-66.0) % Immature Gran % (Auto) (0.00-0.4) % Nucleat RBC Rel Count (0.00-0.1) % Eos # (Auto) (0-0.5) x10^3/uL Immature Gran # (Auto) (0.00-0.03) x10^3u/L Absolute Lymphs (auto) (1.0-4.6) x10^3/uL Absolute Monos (auto) (0.0-1.3) x10^3/uL Absolute Nucleated RBC (0.00-0.01) x10^3u/L Lymphocytes % (24.0-44.0) % Monocytes % (0.0-12.0) % Eosinophils % (0.00-5.0) % Basophils % (0.0-0.4) % Absolute Granulocytes (1.4-6.9) x10^3/uL Basophils # (0-0.4) x10^3/uL Sodium (137-145) mmol/L Potassium (3.5-5.1) mmol/L Chloride (98-107) mmol/L Carbon Dioxide (22-30) mmol/L Anion Gap (5-15) MEQ/L BUN (7-17) mg/dL Creatinine (0.52-1.04) mg/dL Estimated GFR ML/MIN Glucose (74-106) mg/dL Calcium (8.4-10.2) mg/dL Total Bilirubin (0.2-1.3) mg/dL AST (14-36) U/L ALT (0-35) U/L Alkaline Phosphatase (38-126) U/L Serum Total Protein (6.3-8.2) g/dL Albumin (3.5-5.0) g/dL Amylase (30-110) U/L Lipase (23-300) U/L Urinalys Dipstick Clnc Urine Color (YELLOW) Urine Appearance (CLEAR) Urine pH (5-6) Ur Specific [place] (1.005-1.025) POC Urine Protein Conf (Negative) Urine Ketones (NEGATIVE) Urine Nitrite (NEGATIVE) Urine Bilirubin (NEGATIVE) Urine Urobilinogen (0-1) mg/dL Urine Leukocytes (NEGATIVE) Urine WBC (Auto) (0-5) /HPF Urine RBC (Auto) (0-2) /HPF U Epithel Cells (Auto) (FEW) /HPF Urine Bacteria (Auto) (NEGATIVE) /HPF Urine RBC (0-5) Bello/ul Urine Mucus (Auto) (NEGATIVE) /HPF Ur Culture Indicated? Urine Glucose (NEGATIVE) mg/dL Urine HCG, Qual NEGATIVE (Negative) - Progress Progress: unchanged Progress Note: 02/10/22 11:31 This patient is a signing out AGAINST MEDICAL ADVICE. She states that she is leaving because her mother is advising her to go to a hospital closer to her mother's home. We do not have the results of the CAT scan of the abdomen pelvis without contrast. Patient is aware that there are still results pending. Despite our advising her to wait until the work-up is complete, she will sign out AGAINST MEDICAL ADVICE. Counseled pt/family regarding: lab results, diagnosis, need for follow-up - Departure Departure Disposition: AMA Clinical Impression: Abdominal pain Condition: Stable Critical Care Time: No Referrals: TEMO HICKS [Primary Care Provider] - Follow up/PCP as directed Additional Instructions: Return to the emergency department if symptoms worsen
[2022-02-10 10:21] VITALS: BP 106/52; PULSE 56; O2SAT 98
[2022-02-10 10:54] LABS: Absolute Neutrophil Ct (ANC) 3.87 x10^3/uL (1.4-6.9); Basophil (Absolute #) 0.03 x10^3/uL (0-0.4); Eosinophil % 1.2 % (0.00-5.0); Eosinophil (Absolute #) 0.07 x10^3/uL (0-0.5); Hematocrit 37.5 % (35-47); Lymphocyte (Absolute #) 1.52 x10^3/uL (1.0-4.6); Lymphocytes % 25.6 % (24.0-44.0); Mean Cell Volume 89.7 fL (78-100); Mean Corpuscular Hemoglobin 28.7 pg (26-32); Mean Platelet Volume 11.5 fL (7.5-11.0); Monocyte (Absolute #) 0.43 x10^3/uL (0.0-1.3); Monocytes % 7.3 % (0.0-12.0); Neutrophil % 65.2 % (36.0-66.0); Platelet Count 217 x10^3/uL (150-450); Red Blood Count 4.18 x10^6/uL (4.1-5.4); Red Cell Distribution Width 12.9 % (11.5-14.0); White Blood Count 5.9 x10^3/uL (4.0-10.5)
[2022-02-10 11:01] LABS: Appearance CLEAR (CLEAR); Bilirubin NEGATIVE (NEGATIVE); Dipstick done @ ? MAIN LAB; Glucose NEGATIVE (NEGATIVE); Ketones SMALL-15 (NEGATIVE); Nitrite NEGATIVE (NEGATIVE); Protein,Urine Dip NEGATIVE (Negative); RBC NEGATIVE Ery/ul (0-5); Specific Gravity >=1.030 (1.005-1.025); Urobilinogen 0.2 mg/dL (0-1)
[2022-02-10 11:05] LABS: ALBUMIN 4.1 g/dL (3.5-5.0); ALKALINE PHOSPHATASE 34 U/L (38-126); AMYLASE 61 U/L (30-110); ANION GAP 10.3 MEQ/L (5-15); BLOOD UREA NITROGEN 10 mg/dL (7-17); CHLORIDE 106 mmol/L (98-107); Calcium 8.8 mg/dL (8.4-10.2); Carbon Dioxide 27 mmol/L (22-30); Creatinine 1 0.79 mg/dL (0.52-1.04); EST GLOMERULAR FILTRATION RATE > 60.0 ML/MIN; Glucose 92 mg/dL (74-106); LIPASE 45 U/L (23-300); Potassium 4.4 mmol/L (3.5-5.1); SGOT/AST 15 U/L (14-36); SGPT/ALT 14 U/L (0-35); SODIUM 139 mmol/L (137-145); Total Protein 6.8 g/dL (6.3-8.2)
[2022-02-10 11:10] LABS: Epithelial Cells RARE /HPF (FEW); Mucus SLIGHT /HPF (NEGATIVE)
[2022-02-10] MEDS ORDERED: Sodium Chloride 0.9% 500 ML 0 ML IV ONE (11:11)
[2022-02-10 11:16] LABS: Urine Cultured Indicated? NO
--- NOTE | 2022-02-10 11:36 | XRAY ---
Indication: Left lower quadrant pain 1 week. Vomiting and constipation. Multiple contiguous axial images obtained through the abdomen and pelvis without contrast. Comparison: June 21, 2019 Lung bases remain clear. Heart not enlarged. Noncontrasted stomach and bowel loops nonobstructed with normal appendix. New finding for mild distal sigmoid/rectal fecal impaction. No free fluid/air. Remaining liver, gallbladder, pancreas, spleen, adrenal glands, kidneys, ureters, bladder, uterus, and aorta are unremarkable for noncontrast exam. Osseous structures intact again with small multilevel Schmorl nodes. Impression: 1. Mild distal sigmoid/rectal fecal impaction. 2. Remaining CT abdomen/pelvis without contrast exam is again negative.
[2022-02-10] MEDS: Sodium Chloride 0.9% 500 ML 500 ML IV ONE (11:56)
== END 2022-02-10 11:30 | disposition left against medical advice (07) ==
LOC: ED 10:06
DX: R10.32 Left lower quadrant pain (principal); R11.10 Vomiting, unspecified; R19.7 Diarrhea, unspecified; Z72.0 Tobacco use
CPT/HCPCS: 36415; 74176; 80053; 81015; 81025; 82150; 83690; 85025; 99282

== ENCOUNTER 2023-01-15 15:25 | Emergency (ER) | payer MEDICAID ==
[2023-01-15] MEDS ORDERED: solu-CORTEF 250MG IM STA (15:36)
[2023-01-15 15:42] VITALS: O2SAT 100
[2023-01-15 15:43] VITALS: BP 125/64; PULSE 57; RESP 17
--- NOTE | 2023-01-15 15:43 | ERPHSYRPT ---
- History of Present Illness Time Seen by Provider: 01/15/23 15:37 Source: patient Exam Limitations: no limitations Physician History: Patient is 22-year-old female without any significant past medical history except for childhood asthma, she was pulling out the insulation pad at home and suddenly she started having some rash on her right side of the face right side of the and left side of the forearm and it initially developed a little bit shortness of breath but then it went away and she started having some itching and skin redness. 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[employer] - Vaccination Dates Date of 2cond Vaccination (if applicable): 2020 - Review of Systems Constitutional: No Fever, No Chills Eyes: No Symptoms Ears, Nose, & Throat: No Symptoms Respiratory: No Cough, No Dyspnea Cardiac: No Chest Pain, No Edema, No Syncope Abdominal/Gastrointestinal: No Abdominal Pain, No Nausea, No Vomiting, No Diarrhea Genitourinary Symptoms: No Dysuria Musculoskeletal: No Back Pain, No Neck Pain Skin: Rash Neurological: No Dizziness, No Focal Weakness, No Sensory Changes Psychological: No Symptoms Endocrine: No Symptoms All Other Systems: Reviewed and Negative - Past Medical History Pertinent Past Medical History: Yes Neurological History: No Pertinent History ENT History: No Pertinent History Cardiac History: No Pertinent History Respiratory History: No Pertinent History Endocrine Medical History: Hypothyroidism Musculoskeletal History: No Pertinent History GI Medical History: GERD History: No Pertinent History Psycho-Social History: Anxiety, Depression Female Reproductive Disorders: No Pertinent History - Past Surgical History Past Surgical History: Yes Neuro Surgical History: No Pertinent History Cardiac: No Pertinent History Respiratory: No Pertinent History Gastrointestinal: No Pertinent History Genitourinary: No Pertinent History Musculoskeletal: No Pertinent History Female Surgical History: No Pertinent History Other Surgical History: EGD - Social History Smoking Status: Current every day smoker How long have you smoked: 2 yrs Exposure to second hand smoke: Yes Drug Use: none, marijuana Patient Lives Alone: No - Physical Exam General Appearance: no apparent distress, alert Eye Exam: PERRL/EOMI, eyes nml inspection Ears, Nose, Throat Exam: normal ENT inspection, pharynx normal, moist mucous membranes Neck Exam: normal inspection, non-tender, supple, full range of motion Respiratory Exam: normal breath sounds, lungs clear, No respiratory distress Cardiovascular Exam: regular rate/rhythm, normal heart sounds Gastrointestinal/Abdomen Exam: soft, mass, No tenderness Back Exam: normal inspection, normal range of motion, No CVA tenderness, No vertebral tenderness Extremity Exam: normal inspection, normal range of motion Neurologic Exam: alert, oriented x 3, cooperative, normal mood/affect, sensation nml, No motor deficits Skin Exam: normal color, warm, dry, rash - Course Nursing assessment & vital signs reviewed: Yes - Progress Progress: improved Counseled pt/family regarding: diagnosis, need for follow-up Medical Desision Making - Risk of complications Minimal Risk: Minimal risk of morbidity - Departure Departure Disposition: Home Clinical Impression: Rash/skin eruption Condition: Stable Critical Care Time: No Referrals: TEMO GUERRERO [Primary Care Provider] - Follow up/PCP as directed Instructions: Skin Rash (DC) Additional Instructions: Apply hydrocortisone and Benadryl cream on affected area of the rash. Discharge/Care Plan SHASHI JORGENSEN was seen on 01/15/23 in the Emergency Room. The patient was counseled regarding Diagnosis,Lab results, Imaging studies, need for follow up and when to return to the Emergency Room. Prescriptions given: Discharge Note I have spoken with the patient and/or caregivers. I have explained the patient's condition, diagnosis and treatment plan based on the information available to me at this time. I have answered the patient's and/or caregiver's questions and addressed any concerns. The patient and/or caregivers have as good understanding of the patient's diagnosis, condition and treatment plan as can be expected at this point. The vital signs have been stable. The patient's condition is stable and appropriate for discharge from the emergency department. The patient will pursue further outpatient evaluation with the primary care physician or other designated or consulting physician as outlined in the discharge instructions. The patient and/or caregivers are agreeable to this plan of care and follow-up instructions have been explained in detail. The patient and/or caregivers have received these instruction. The patient/and or caregivers are aware that any significant change in condition or worsening of symptoms should prompt an immediate return to this or the closest emergency department or call 911. SHASHI JORGENSEN was seen on 01/15/23 n the Emergency Room. At that time you were treated for an emergent condition, during your visit Laboratory, Radiology and/or other procedures may have been ordered. It is very important that you follow-up with your Primary Care Physician TEMO GUERRERO within the next 24-48 hours to review your Emergency Room visit and the final results of testing that was ordered. Some test results such as Urine Cultures, Blood Cultures, and other cultures if ordered will not be finalized for 24-48 hours. If you do not have a Primary Care Provider please call the medical records department at [phone] ext [phone] to obtain a copy of your results or you may sign into our patient portal to obtain these results by visiting us @ [email or web address] and completing the following steps: 1. Click on the Patient Portal link 2. Click the Patient Self Enrollment Link to complete the enrollment form and entering your 3. Once the enrollment form is completed you will receive an email with a temporary ID and password at the email address you provided. 4. Next choose a user name and password. Your user name must be at least 4 characters long and your password must be at least 4 characters long. 5. Choose a security question from the list and provide your answer to the question. If you already have signed into the Health Portal you may access your Health Care Information 01/11 by the following steps: 1. Login to our website @ [email or web address] 2. Enter your original user name and password. FAQS The [facility] Health Portal is an online tool that contains your Lab Results, Radiology Reports, Visit History, Discharge Instructions and Health Summary Lab and Radiology Results will not be available for 72 hours on the portal. The Portal is a secure site, passwords are encryted and URLs are re-written so they cannot be copied and pasted. You and authorized family members are the only ones who can access your Portal. Also there is a timeout feature that protects your information if you leave the Portal page open. If you have technical difficulty please use the Contact Us link on the page this will allow you to submit any questions you have regarding the Portal or you may contact the Medical Record Department at [phone]. Prescriptions: EPINEPHrine [Epipen 2-Jose] 0.3 mg IM UD #2 kit
[2023-01-15] MEDS ORDERED: solu-CORTEF 250MG ONE (15:46)
== END 2023-01-15 15:50 | disposition home or self-care (01) ==
LOC: ED 15:25
DX: R21 Rash and other nonspecific skin eruption (principal); Z72.0 Tobacco use
CPT/HCPCS: 96372; 99282; J1720

== ENCOUNTER 2024-07-17 16:08 | Emergency (ER) | payer OTHER ==
[2024-07-17 16:20] VITALS: BP 161/80; TEMP 97; O2SAT 100
--- NOTE | 2024-07-17 16:32 | ERPHSYRPT ---
- History of Present Illness Time Seen by Provider: 07/17/24 16:46 Source: patient Exam Limitations: physical impairment Patient Subjective Stated Complaint: pt states she seen her dentist a couple weeks ago. pt states that she finished augmentin a week ago. pt states that today the pain has got worse Triage Nursing Assessment: pt ambulated into the er; pt is axo x4; c/o toothache; pt states 8/10 pain to rt upper mouth; broken tooth present to rt molar; mucus membranes pink and moist; no foul ordor present; skin PDW; no respiratory distress present; hypertensive Physician History: 24-year-old female presents to our ED for evaluation of dental pain. Pain is at the right maxillary molar. Specifically tooth #1. The tooth is chipped and appears fractured as well. Patient followed up with a dentist approximately 2 to 3 weeks ago. Patient was prescribed Augmentin. Patient completed her course of Augmentin 1 week ago. The pain improved while on the antibiotic however now the pain is worsening. Patient concerned that the infection is reoccurring. No fever no headache no nausea no vomiting no difficulty swallowing eating or drinking. Patient tolerating her oral secretions. Patient voices no other comp laints or concerns at this time. Portions of this note were created with voice recognition technology. There may be grammatical, spelling, punctuation or sound alike errors Timing/Duration: week(s) Severity: moderate (3 weeks) Modifying Factors: Improves With: nothing Associated Symptoms: denies symptoms Allergies/Adverse Reactions: cashew nut Allergy (Intermediate, Verified 07/17/24 16:11) Hives Home Medications: EPINEPHrine [Epipen 2-Jose] 0.3 mg IM DAILY PRN 07/17/24 [History] Hx Tetanus, Diphtheria Vaccination/Date Given: Yes Hx Influenza Vaccination/Date Given: No Hx Pneumococcal Vaccination/Date Given: No Travel Risk - International Travel Have you traveled outside of the country in past 3 weeks: No - Emerging Infectious Disease Are you exhibiting symptoms associated with any current EIDs: No - Review of Systems Constitutional: No Symptoms, No Fever, No Chills Eyes: No Symptoms Ears, Nose, & Throat: No Symptoms Respiratory: No Symptoms, No Cough, No Dyspnea Cardiac: No Symptoms, No Chest Pain, No Edema, No Syncope Abdominal/Gastrointestinal: No Symptoms, No Abdominal Pain, No Nausea, No Vomiting, No Diarrhea Genitourinary Symptoms: No Symptoms, No Dysuria Musculoskeletal: No Symptoms, No Back Pain, No Neck Pain Skin: No Symptoms, No Rash Neurological: No Symptoms, No Dizziness, No Focal Weakness, No Sensory Changes Psychological: No Symptoms Endocrine: No Symptoms Hematologic/Lymphatic: No Symptoms Immunological/Allergic: No Symptoms All Other Systems: Reviewed and Negative - Past Medical History Pertinent Past Medical History: Yes Neurological History: No Pertinent History ENT History: No Pertinent History Cardiac History: No Pertinent History Respiratory History: No Pertinent History Endocrine Medical History: Hypothyroidism Musculoskeletal History: No Pertinent History GI Medical History: GERD History: No Pertinent History Psycho-Social History: Anxiety, Depression Female Reproductive Disorders: No Pertinent History - Past Surgical History Past Surgical History: Yes Neuro Surgical History: No Pertinent History Cardiac: No Pertinent History Respiratory: No Pertinent History Gastrointestinal: No Pertinent History Genitourinary: No Pertinent History Musculoskeletal: No Pertinent History Female Surgical History: No Pertinent History Other Surgical History: EGD - Female History Hx Last Menstrual Period: 3 wks Hx Now: No - Social History Smoking Status: Current every day smoker How long have you smoked: 2 yrs Exposure to second hand smoke: Yes Drug Use: marijuana - Social Determinants of Health Will the patient participate in the screening: Yes Do you worry about a steady place to live?: No Do you have any problems with any of the following?: No known problems In the past 12 months,have you had to go without utilities?: No Transportation Issues: No Has anyone in your support network made you feel unsafe?: No Have you or anyone in your house had to go w/o enough food: No - Nursing Vital Signs Nursing Vital Signs: Initial Vital Signs Temperature 97 F 07/17/24 16:12 Pulse Rate 74 07/17/24 16:12 Respiratory Rate 16 07/17/24 16:12 Blood Pressure 161/80 07/17/24 16:12 O2 Sat by Pulse Oximetry 100 07/17/24 16:12 Pain Scale Pain Intensity 8 - Physical Exam General Appearance: no apparent distress, alert Eye Exam: PERRL/EOMI, eyes nml inspection Ears, Nose, Throat Exam: normal ENT inspection, pharynx normal, moist mucous membranes, other (Tooth #1 is fractured and carious. The adjacent gingiva is red tender to palpation. No Ramehs's angina. Oral airway patent. Normal p honation.) Neck Exam: normal inspection, non-tender, supple, full range of motion Respiratory Exam: normal breath sounds, lungs clear, No respiratory distress Cardiovascular Exam: regular rate/rhythm Gastrointestinal/Abdomen Exam: soft, normal bowel sounds, No tenderness, No mass Back Exam: normal inspection, normal range of motion, No CVA tenderness, No vertebral tenderness Extremity Exam: normal inspection, normal range of motion, pelvis stable Neurologic Exam: alert, oriented x 3, cooperative, normal mood/affect, sensation nml, No motor deficits Skin Exam: normal color, warm, dry, No rash Lymphatic Exam: No adenopathy SpO2 Interpretation: normal SpO2: 100 O2 Delivery: Room Air - Course Nursing assessment & vital signs reviewed: Yes Ordered Tests: Medication Summary Discontinued Medications Generic Name Dose Route Start Last Admin Trade Name Freq PRN Reason Stop Dose Admin Ketorolac Tromethamine 60 mg 07/17/24 16:33 07/17/24 16:45 Ketorolac Tromethamine 30 Mg/Ml Inj IM 07/17/24 16:34 60 mg STAT ONE Administration - Progress Progress: improved Progress Note: 24-year-old female presents to our ED with dental pain. Patient completed a course of Augmentin per her dentist. Pain improved however pain appears to be recurring as she completed her Augmentin approximately 1 week ago. Patient concerned for reoccurring infection. Patient received an IM dose of Toradol. Patient denies the possibility of . A prescription for [place] and clindamycin forwarded to patient's pharmacy. Patient will follow-up with an emergent dental doctor in [place] as her current dentist will not be available for another 6 weeks. Patient otherwise feels well. She voices no other complaints or concerns at this time. Pain improved after IM Toradol administration. Portions of this note were created with voice recognition technology. There may be grammatical, spelling, punctuation or sound alike errors Complexity of problems addressed is moderate acute complicated no critical care time. Complexity of data reviewed and analyzed as moderate. Test ordered chest reviewed results analyzed and correlated clinically with history and physical exam. Risk of complication and or risk of morbidity/mortality of patient management is high. Patient received a prescription for [place] and clindamycin. Vital stable. Time spent to discharge patient is approximately 15 minutes. Plan of care established for shared decision making. No social determinants of health present to impede follow-up. Portions of this note were created with voice recognition technology. There may be grammatical, spelling, punctuation or sound alike errors 07/17/24 16:51 Counseled pt/family regarding: diagnosis, need for follow-up - Departure Departure Disposition: Home Clinical Impression: Pain, dental, Dental abscess, Fractured tooth Condition: Stable Critical Care Time: No Referrals: TEMO GUERRERO [Primary Care Provider] - Follow up/PCP as directed Instructions: Dental pain - ED discharge instructions, Dental abscess - ED discharge instructions Additional Instructions: Discharge/Care Plan SHASHI JORGENSEN was seen on 07/17/24 in the Emergency Room. The patient was counseled regarding Diagnosis,Lab results, Imaging studies, need for follow up and when to return to the Emergency Room. Prescriptions given: Discharge Note I have spoken with the patient and/or caregivers. I have explained the patient's condition, diagnosis and treatment plan based on the information available to me at this time. I have answered the patient's and/or caregiver's questions and addressed any concerns. The patient and/or caregivers have as good understanding of the patient's diagnosis, condition and treatment plan as can be expected at this point. The vital signs have been stable. The patient's condition is stable and appropriate for discharge from the emergency department. The patient will pursue further outpatient evaluation with the primary care physician or other designated or consulting physician as outlined in the discharge instructions. The patient and/or caregivers are agreeable to this plan of care and follow-up instructions have been explained in detail. The patient an d/or caregivers have received these instruction. The patient/and or caregivers are aware that any significant change in condition or worsening of symptoms should prompt an immediate return to this or the closest emergency department or call 911. Prescriptions: Hydrocodone/APAP 5/325 [[place] 5/325 mg] 1 each PO Q6H PRN PRN #10 tablet MDD 4 PRN Reason: Pain Clindamycin HCl 150 mg [Cleocin 150 mg Capsule] 2 cap PO QID #56 cap
[2024-07-17] MEDS ORDERED: TORAdol 30 mg Injection ONE (16:44)
[2024-07-17] MEDS: TORAdol 30 mg Injection IM ONE (16:45)
[2024-07-17 17:08] VITALS: PULSE 70; RESP 18
== END 2024-07-17 17:00 | disposition home or self-care (01) ==
LOC: ED 16:08
DX: K04.7 Periapical abscess without sinus (principal); S02.5XXA Fracture of tooth (traumatic), initial encounter for closed fracture; K08.89 Other specified disorders of teeth and supporting structures; Z79.891 Long term (current) use of opiate analgesic; Z79.899 Other long term (current) drug therapy; Z72.0 Tobacco use
CPT/HCPCS: 96372; 99282; 99283; J1885

== ENCOUNTER 2024-12-31 13:14 | Emergency (ER) | payer OTHER ==
[2024-12-31 13:37] VITALS: RESP 18; TEMP 96.2
--- NOTE | 2024-12-31 14:12 | ERPHSYRPT ---
- History of Present Illness Time Seen by Provider: 12/31/24 13:30 Source: patient, other (patient states that her blood pressure was low - she took her medication and it has since imrpoved ) Exam Limitations: no limitations Patient Subjective Stated Complaint: pt states that she has been fighting with low blood pressure for the past 6 months Triage Nursing Assessment: pt ambulated into the er; pt is axo x4; c/o hypotension; clear apical heart tone; strong tylor radial pulses; strong tylor pedal pulses; clear lung sounds in all lobes; no respiratory distress present; no edema present; vitals wnl Severity: mild Associated Symptoms: denies symptoms Allergies/Adverse Reactions: cashew nut Allergy (Intermediate, Verified 09/04/24 14:46) Hives Home Medications: Aripiprazole 10 mg [Abilify 10 MG] 10 mg PO HS 12/31/24 [History] Fludrocortisone Acetate 0.1 mg PO DAILY 12/31/24 [History] Hx Tetanus, Diphtheria Vaccination/Date Given: Yes Hx Influenza Vaccination/Date Given: No Hx Pneumococcal Vaccination/Date Given: No Travel Risk - International Travel Have you traveled outside of the country in past 3 weeks: No - Emerging Infectious Disease Are you exhibiting symptoms associated with any current EIDs: No - Review of Systems Constitutional: No Symptoms Eyes: No Symptoms Ears, Nose, & Throat: No Symptoms Respiratory: No Symptoms Cardiac: No Symptoms Abdominal/Gastrointestinal: No Symptoms Genitourinary Symptoms: No Symptoms Musculoskeletal: No Symptoms Skin: No Symptoms Neurological: No Symptoms Psychological: No Symptoms Endocrine: No Symptoms Hematologic/Lymphatic: No Symptoms Immunological/Allergic: No Symptoms All Other Systems: Reviewed and Negative - Past Medical History Pertinent Past Medical History: Yes Neurological History: No Pertinent History ENT History: No Pertinent History Cardiac History: No Pertinent History Respiratory History: No Pertinent History Endocrine Medical History: Hypothyroidism Musculoskeletal History: No Pertinent History GI Medical History: GERD History: No Pertinent History Psycho-Social History: Anxiety, Depression Female Reproductive Disorders: Abnormal Uterine Bleeding Other Medical History: Borderline personality disorder - Past Surgical History Past Surgical History: Yes Neuro Surgical History: No Pertinent History Cardiac: No Pertinent History Respiratory: No Pertinent History Gastrointestinal: No Pertinent History Genitourinary: No Pertinent History Musculoskeletal: No Pertinent History Female Surgical History: Dilation & Curettage Other Surgical History: EGD - Female History Hx Last Menstrual Period: 12/08/24 Hx Now: No - Social History Smoking Status: Current every day smoker How long have you smoked: 2 yrs Exposure to second hand smoke: Yes Drug Use: marijuana - Social Determinants of Health Will the patient participate in the screening: Yes Do you worry about a steady place to live?: No Do you have any problems with any of the following?: No known problems In the past 12 months,have you had to go without utilities?: No Transportation Issues: No Has anyone in your support network made you feel unsafe?: No Have you or anyone in your house had to go w/o enough food: No - Nursing Vital Signs Nursing Vital Signs: Initial Vital Signs Temperature 96.2 F 12/31/24 13:28 Pulse Rate 70 12/31/24 13:28 Respiratory Rate 18 12/31/24 13:28 Blood Pressure 110/56 12/31/24 13:28 O2 Sat by Pulse Oximetry 100 12/31/24 13:28 Pain Scale Pain Intensity 6 - Physical Exam General Appearance: no apparent distress Eye Exam: PERRL/EOMI Ears, Nose, Throat Exam: normal ENT inspection Neck Exam: normal inspection Respiratory Exam: normal breath sounds Cardiovascular Exam: regular rate/rhythm Gastrointestinal/Abdomen Exam: soft, normal bowel sounds Extremity Exam: normal inspection SpO2: 100 - Progress Progress Note: patient was seen and evaluated for here complaints - she feels better after taking her meds. she was monitored and developed no further symptoms - she was reasured and informed of the need to follow up with her PMD 12/31/24 14:08 Medical Desision Making - Discussion of managment Care discussed with:: PCP Reviewed:: Need for additional workup - Departure Departure Disposition: Home Clinical Impression: Weakness Condition: Stable Critical Care Time: No Referrals: TEMO GUERRERO [Primary Care Provider, [facility]] - Follow up/PCP as directed
[2024-12-31 14:35] VITALS: BP 104/57; PULSE 64; O2SAT 97
== END 2024-12-31 14:34 | disposition home or self-care (01) ==
LOC: ED 13:14
DX: R53.1 Weakness (principal); I95.9 Hypotension, unspecified; Z79.899 Other long term (current) drug therapy; Z72.0 Tobacco use